=== PATIENT | male | born 1950 | race Caucasian/White ===

== ENCOUNTER 2019-07-15 05:14 | Inpatient (IN) | payer MEDICARE, BC ==
[2019-07-15] MEDS: CEFAZOLIN 2 GM/50 ML (PMX) 50 ML IVPB (06:24)
[2019-07-15] MEDS: LACTATED RINGER'S 1,000 ML (ENTER RATE) IV (06:24)
[2019-07-15] MEDS ORDERED: THROMBIN 5000 UNIT (RECOTHROM) VIAL (06:55)
[2019-07-15] MEDS ORDERED: GELATIN SIZE 100 SPONGE (06:55)
[2019-07-15] MEDS ORDERED: DESFLURANE 15 MIN (07:00)
[2019-07-15] MEDS ORDERED: ONDANSETRON 4 MG INJ IV ×2 (07:00→10:30)
[2019-07-15] MEDS ORDERED: MEPERIDINE 25 MG INJ IV (07:00)
[2019-07-15] MEDS ORDERED: HYDROmorphONE 1 MG/5 ML IV SYRINGE IV (07:00)
[2019-07-15] MEDS ORDERED: hydrALAzine 20 MG INJ IV (07:00)
[2019-07-15] MEDS ORDERED: LABETALOL HCL 20MG INJ IV (07:00)
[2019-07-15] MEDS ORDERED: PROPOFOL 200 MG INJ (07:00)
[2019-07-15] MEDS ORDERED: HYDROmorphONE 2 MG/ML SYG (07:03)
[2019-07-15] MEDS ORDERED: LIDOCAINE 1% (MDV) 20 ML INJ (07:03)
[2019-07-15] MEDS ORDERED: SUCCINYLCHOLINE CHLORIDE 100 MG/5 ML SYG IV (07:03)
[2019-07-15] MEDS ORDERED: MIDAZOLAM 1 MG/ML 2 ML INJ (07:03)
[2019-07-15] MEDS ORDERED: ROCURONIUM 50 MG INJ (07:03)
[2019-07-15] MEDS ORDERED: DEXAMETHASONE 4 MG/ML 5 ML INJ (07:32)
[2019-07-15] MEDS ORDERED: ONDANSETRON 4 MG INJ (07:32)
[2019-07-15] MEDS: BUPIVACAINE 0.25% (MPF) 30 ML INJ (08:10)
[2019-07-15] MEDS: POLYMYXIN/BACITRACIN 1L IRRIG (08:10)
[2019-07-15] MEDS ORDERED: ALBUTEROL 0.083% (NEB) 2.5 MG/3 ML AMP (09:14)
[2019-07-15] MEDS ORDERED: PROVENTIL HFA 6.7GM INHALER (09:15)
[2019-07-15] MEDS ORDERED: SUGAMMADEX SODIUM 200 MG/2 ML VIAL IV (10:19)
[2019-07-15] MEDS ORDERED: TRIMETHOBENZAMIDE 100 MG/ML VIAL IM (10:30)
[2019-07-15] MEDS ORDERED: ACETAMINOPHEN 325 MG TAB PO (10:30)
[2019-07-15] MEDS ORDERED: DIAZEPAM 10 MG/2 ML SYG IM (10:30)
[2019-07-15] MEDS ORDERED: HYDROCODONE/APAP (5/325) TAB PO (10:30)
[2019-07-15] MEDS ORDERED: NALOXONE (0.4 MG/ML) INJ IV (10:30)
[2019-07-15] MEDS ORDERED: DIAZEPAM 5 MG TAB PO (10:30)
[2019-07-15] MEDS ORDERED: PROCHLORPERAZINE 10 MG TAB PO (10:30)
[2019-07-15] MEDS ORDERED: BETHANECHOL 25 MG TAB PO (10:30)
[2019-07-15] MEDS ORDERED: NACL 0.9% 3 ML SYG IV (10:30)
[2019-07-15] MEDS ORDERED: DIPHENHYDRAMINE 50 MG CAP PO (10:30)
[2019-07-15] MEDS ORDERED: AL HYDROX/MG HYDROX/SIMETH 30 ML CUP PO (10:30)
[2019-07-15] MEDS: HYDROmorphONE 1 MG/5 ML IV SYRINGE IV ×2 (11:03→11:12)
[2019-07-15] MEDS: HYDROmorphONE 0.2 MG/ML PCA IV (11:23)
[2019-07-15] MEDS: DEXTROSE 5%-0.45% NACL 1,000 ML IV ×3 (13:57→23:58)
[2019-07-15] MEDS: RANITIDINE 150 MG TAB PO (21:45)
[2019-07-15] MEDS: ATORVASTATIN 10 MG TAB PO (21:45)
[2019-07-16] MEDS: HYDROmorphONE 0.2 MG/ML PCA IV (01:40)
[2019-07-16] MEDS: CEPASTAT LOZENGE MT ×2 (01:48→05:50)
[2019-07-16] MEDS: ZOLPIDEM 5 MG TAB PO ×2 (01:48→20:54)
[2019-07-16 05:02] LABS: HEMATOCRIT 37.6 % (42.0-52.0); HEMOGLOBIN 12.4 g/dl (14.0-18.0)
[2019-07-16 05:22] LABS: ANION GAP 2 (5-13); BLOOD UREA NITROGEN 13 mg/dl (7-20); CALCIUM 8.2 mg/dl (8.4-10.2); CARBON DIOXIDE 31 mmol/L (21-31); CHLORIDE 102 mmol/L (97-110); CREATININE 0.72 mg/dl (0.61-1.24); Estimated GFR > 60 mL/min (>60); GLUCOSE 142 mg/dl (70-220); POTASSIUM 4.5 mmol/L (3.5-5.1); SODIUM 135 mmol/L (135-144)
[2019-07-16] MEDS: LACTATED RINGER'S 1,000 ML (ENTER RATE) IV (07:00)
[2019-07-16] MEDS: DOCUSATE SODIUM 100 MG CAP PO ×2 (09:22→20:52)
[2019-07-16] MEDS: RANITIDINE 150 MG TAB PO ×2 (09:22→20:51)
[2019-07-16] MEDS: HYDROCODONE/APAP (5/325) TAB PO ×4 (09:22→20:54)
[2019-07-16] MEDS: ASCORBIC ACID 500 MG TAB PO ×2 (09:23→20:53)
[2019-07-16] MEDS: FERROUS SULFATE (EC) 325 MG TAB PO ×3 (09:23→20:53)
[2019-07-16] MEDS: LISINOPRIL 5 MG TAB PO (09:23)
[2019-07-16] MEDS: BETHANECHOL 25 MG TAB PO ×2 (09:31→13:17)
[2019-07-16 10:20] LABS: ADD UMIC YES; UR ASCORBIC ACID NEGATIVE (NEGATIVE); UR BILIRUBIN (Dip) NEGATIVE (NEGATIVE); UR BLOOD (Dip) 2+ mg/dL (NEGATIVE); UR CLARITY CLEAR (CLEAR); UR COLOR STRAW (YELLOW); UR GLUCOSE (Dip) NEGATIVE (NEGATIVE); UR KETONES (Dip) NEGATIVE (NEGATIVE); UR LEUKOCYTE ESTERASE (Dip) TRACE Leu/ul (NEGATIVE); UR NITRITE (Dip) NEGATIVE (NEGATIVE); UR RBC 3 /HPF (0-5); UR SPECIFIC GRAVITY (Dip) 1.004 (1.003-1.030); UR TOTAL PROTEIN (Dip) NEGATIVE (NEGATIVE); UR UROBILINOGEN (Dip) NEGATIVE (NEGATIVE); UR WBC 3 /HPF (0-5)
[2019-07-16] MEDS: DEXTROSE 5%-0.45% NACL 1,000 ML IV (16:10)
[2019-07-16] MEDS: ATORVASTATIN 10 MG TAB PO (20:52)
[2019-07-17] MEDS: DEXTROSE 5%-0.45% NACL 1,000 ML IV (02:10)
[2019-07-17] MEDS: HYDROCODONE/APAP (5/325) TAB PO ×2 (02:21→09:01)
[2019-07-17] MEDS: LACTATED RINGER'S 1,000 ML (ENTER RATE) IV (05:30)
[2019-07-17] MEDS: FERROUS SULFATE (EC) 325 MG TAB PO (09:01)
[2019-07-17] MEDS: RANITIDINE 150 MG TAB PO (09:01)
[2019-07-17] MEDS: DOCUSATE SODIUM 100 MG CAP PO (09:01)
[2019-07-17] MEDS: ASCORBIC ACID 500 MG TAB PO (09:01)
[2019-07-17] MEDS: LISINOPRIL 5 MG TAB PO (09:02)
== END 2019-07-17 12:11 | disposition home or self-care (01) | DRG 517 ==
LOC: REC 05:14 → MS1 12:22
PROC: 01NB0ZZ Release Lumbar Nerve, Open Approach (ICD-10-PCS; principal; 2019-07-15 07:00)
PROC: 4A11X4G Monitoring of Peripheral Nervous Electrical Activity, Intraoperative, External Approach (ICD-10-PCS; 2019-07-15 07:00)
DX: M48.061 Spinal stenosis, lumbar region without neurogenic claudication (principal); I10 Essential (primary) hypertension; E78.00 Pure hypercholesterolemia, unspecified
CPT/HCPCS: 72020; 80048; 81001; 85014; 85018; 86850; 86900; 86901; 86920; 87086; 88304; 88311; 97116; 97162; 97164; 97530